=== PATIENT | male | born 1950 | race Caucasian/White ===

== ENCOUNTER 2024-01-25 18:48 | Emergency (ER) | payer MEDICARE ==
[2024-01-25] MEDS ORDERED: Dexamethasone 10 MG/ML VIAL ONE (19:33)
== END 2024-01-25 19:54 | disposition home or self-care (01) ==
LOC: MADERS 18:48
DX: J30.2 Other seasonal allergic rhinitis (principal); Z55.6 Problems related to health literacy
CPT/HCPCS: J1100; 96372; 99283